=== PATIENT | female | born 1955 | race Caucasian/White ===

== ENCOUNTER → 2017-03-11 | Outpatient (CLI) | payer OTHER ==
[~2017-03-11] VITALS: Ht 167.6 cm; Wt 88.9 kg
[~2017-03-11] MED LIST: ATORVASTATIN CA40 MG PO; FENOGLIDE120 MG PO; GLUCOPHAGE500 MG PO; HYDROCODON-ACE1 EAC7 PO; HYDROCODONE-AP1 EAC6 PO; IBUPROFEN 600600 M1 PO; LEVOTHYROXIN0.112 M1 PO; LISINOPRIL-HCT1 EACH PO; LOPRESSOR25; MOBIC7.5 MG PO; NABUMETONE 500500 M2 PO; NAPROSYN500 MG PO; PAXIL 20 MG TAB20 MG PO
--- NOTE | ~2017-03-11 | HPC ---
[facility] [place] [address] PAIN MANAGEMENT CONSULTATION Name: GIRISH BORJA Room #: REG ROSETTE Stewart#: [id number] Admission: 03/11/17 Attend Phys: Ramu Adair DO Discharge: Date of : 55 Report #: [id number] THIS REPORT FOR: //name// CC: Crispin Adair HISTORY OF PRESENT ILLNESS: The patient followed with a delightful 61-year-old female. She was prior seen in the pain clinic a little greater than a year ago, 02/20/2016, for symptomatic lumbar radiculopathy. She was given an epidural injection at L4 with dramatic improvement of baseline pain, the patient returns to the pain clinic today noting pain has recurred, it is in the low back, right lateral leg to the foot. Again, 100% relief from similar symptoms a year ago for multiple months. The patient notes she is packing and moving her home, developed recurrence of pain with this increased activity. She has tried ibuprofen 600 mg q. 6 hours, continues to do physical therapy that she learned from prior prescription physical therapy courses, she is doing these exercises regularly at home and has taken some hydrocodone, all with dwindling efficacy. She notes pain is "10" on a 0-10 visual analog scale, exacerbated with standing, walking or lying on her side. Nothing seems to be affording much relief. Fortunately, she denies bowel or bladder continence changes or specific myelopathic symptoms, but again is getting significant radicular symptoms that are interfering with function. REVIEW OF SYSTEMS: Complete review of systems attached to chart, was gone over with the patient, again reasonably healthy 61-year-old female. Comorbidity includes some non-insulin dependent diabetes, well treated with Glucophage; dyslipidemia for which she takes Lipitor and fenofibrate; hypertension, treated with metoprolol and lisinopril; hypothyroidism for which she takes levothyroxine; some mild anxiety for which she takes Paxil. PHYSICAL EXAMINATION: Shows 167 cm, 88 kilograms female, BMI is 31.7 kilograms per meter squared. Blood pressure 129/81, pulse 71, respirations 16. Cervical range of motion is full. Upper extremity strength is preserved. Rises from chair using armrest. Nominally antalgic gait favoring the right leg. She does have trouble walking on the right heel. Lower extremity extension and dorsiflexion on the right is about 3/5, all other muscle groups including the left leg about 4-5/5 to the individual muscles tested. Grossly positive straight leg raise on the right at 30 degrees. DIAGNOSTIC STUDIES: Prior diagnostic study is modestly dated from August 2013. She did have right herniated disk at L4-L5 with facet changes throughout. ASSESSMENT: Symptomatic lumbar radiculopathy in a right L4 radicular pattern by clinical exam, similar symptoms well treated with epidural injection greater than a year ago, near 100% relief for 10 months. She has failed conservative therapy including range of motion, stretching and physical therapy-guided [address] [address] PAIN MANAGEMENT CONSULTATION Name: GIRISH BORJA Room #: NIYA Stewart#: [id number] Admission: 03/11/17 Attend Phys: Ramu Adair DO Discharge: Date of : 55 Report #: [id number] exercises, nonsteroidal anti-inflammatory medications, ice and heat. Physical exam shows concordant neural tensioning symptoms and concerning weakness in an L4 distribution. RECOMMENDATION: 1. Epidural injection under fluoroscopy. We will request authorization for earliest possible date. 2. We will renew hydrocodone , the patient has used this incredibly judiciously, prescription for 60 tablets lasted nearly a year. Continue ibuprofen 600 mg t.i.d. <ELECTRONICALLY SIGNED> By: Ramu Adair DO 03/11/17 1225 1111 1125 Ramu Adair DO /nt
[2017-03-11 10:00] VITALS: BP 129/81
== END | disposition home or self-care (01) ==
LOC: PAIN 06:58
DX: M54.16 Radiculopathy, lumbar region (principal); E11.9 Type 2 diabetes mellitus without complications; E78.5 Hyperlipidemia, unspecified; I10 Essential (primary) hypertension; E03.9 Hypothyroidism, unspecified; F41.9 Anxiety disorder, unspecified

== ENCOUNTER → 2017-03-14 | Outpatient (CLI) | payer OTHER ==
[~2017-03-14] VITALS: Ht 167.6 cm; Wt 88.5 kg
--- NOTE | ~2017-03-14 | HPC ---
[facility] [place] [address] [address] [place] [address] PAIN MANAGEMENT CONSULTATION Name: GIRISH BORJA Room #: REG [facility] Livan.#: [id number] Admission: 03/14/17 Attend Phys: Ramu Adair DO Discharge: Date of : 55 Report #: [id number] THIS REPORT FOR: //name// CC: Crispin Adair DATE OF SERVICE: 03/14/2017 The patient is a delightful 61-year-old female. She was seen a year ago and had 2 lumbar epidural injections for right lumbar radicular pain with dramatic improvement of pain. Pain began to recur. She was seen in followup on 03/11/2017. We sought authorization for repeat epidural injection under fluoroscopy today. She presents to the pain clinic for that injection. The patient notes pain is ongoing low back, right leg, L4 distribution. ASSESSMENT: Symptomatic lumbar radiculopathy. PROCEDURE: Lumbar epidural injection under fluoroscopy. PROCEDURE NOTE: After both written and informed consent to include risk of spinal cord damage, increased pain, weakness and dural puncture, the patient was taken to the fluoroscopy suite, placed in the prone position. After sterile prep and drape, a skin wheal with lidocaine was raised. A 22-gauge epidural Tuohy needle was inserted in the midline at L4-L5 with good loss to resistance. Negative aspiration for cerebrospinal fluid or blood was noted. Then 1 mL of Omnipaque under biplanar fluoroscopy showed good spread within the epidural space. This was followed with 80 mg of triamcinolone plus 1 mL of 1.5% preservative-free Xylocaine, 0.5 mL Xylocaine was then injected to flush the needle; it was removed. The patient was monitored for an appropriate period of time and discharged in good and stable condition. RECOMMENDATIONS: The patient was told to wean oxycodone prescribed at last visit as able. Follow up in 3 weeks if needed. If she has recurrent symptoms, we can consider repeating the injection or perhaps even moving forward with a right L4-L5 transforaminal epidural injection; however, if she is doing well, I will be happy to have her cancel that appointment. We will see her simply on an as needed basis. By: 0911 1232 Ramu Adair DO /nt
[2017-03-14 08:57] VITALS: BP 122/62
== END ==
LOC: PAIN 06:32
DX: M54.16 Radiculopathy, lumbar region (principal)

== ENCOUNTER → 2017-04-28 | Outpatient (CLI) | payer OTHER ==
[~2017-04-28] VITALS: Ht 167.6 cm; Wt 88.1 kg
[~2017-04-28] MED LIST changes: +NABUMETONE 750750 M1 PO
--- NOTE | ~2017-04-28 | HPC ---
[facility] [address] [address] PAIN MANAGEMENT CONSULTATION Name: GIRISH DUNN Room #: REG [facility].#: [id number] Admission: 04/28/17 Attend Phys: Ramu Adair DO Discharge: Date of : 55 Report #: [id number] THIS REPORT FOR: //name// CC: Crispin Adair The patient is a pleasant 61-year-old female last seen in the pain clinic 03/14/2017, given epidural injection at that time. She prior had a single injection in 2016 and 2 injections in 2015 for ongoing lumbar radicular pain. He returns to pain clinic today noting that that injection afforded incremental relief. Took the sharpness away from the leg, nearly 100% of some of the radicular component, but still has pain in the back and buttock. She incidentally notes significant pain in her hips bilaterally. PHYSICAL EXAMINATION: Shows a 61-year-old female, BMI is 31.4 kilograms per meter squared. Vital signs stable as noted in the EMR. Rises from chair using armrest, but still has a mildly antalgic gait. Passive rotation of the hip exacerbates pain. Flexion is good to 90 degrees. Lower extremity strength is symmetric. Positive straight leg raise on the right. Tender in the right L4 distribution with paresthesia in the lateral anterior thigh and lower leg. Again, passive rotation of the hips exacerbates some moderate amount of pain. I did take the liberty today of ordering x-rays of the hips. I personally reviewed the images. 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 Left hip appears fairly unremarkable. ASSESSMENT: Symptomatic lumbar radiculopathy with greater than 50% improvement following epidural injection #1. We will repeat injection at earliest possible day, we will seek authorization for same. The patient has a specific right L4 radicular pain pattern with a little bit of radiation to the left side. Again, she has failed conservative therapy including a nonsteroidal anti-inflammatory medication use, physical therapy including massages 2-3 times a week, hydrocodone use, although we discourage short acting opiates for chronic pain issues, she uses 2 a day with some efficacy. It seems to help. Then, again greater than 50% relief following the prior injection 03/14/2017. 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 Discharged in good stable condition after prolonged visit, she was seen for approximately 30 minutes, both before and after the x-rays. We did review imaging findings with the patient. We will plan on moving forward with epidural injection under fluoroscopy at next visit. <ELECTRONICALLY SIGNED> By: Ramu Adair DO 05/02/17 0746 1520 1623 Ramu Adair DO /nt
[2017-04-28 10:37] VITALS: BP 123/67
== END ==
LOC: PAIN 04-04 14:01
DX: M54.16 Radiculopathy, lumbar region (principal); Z79.899 Other long term (current) drug therapy; Z98.890 Other specified postprocedural states

== ENCOUNTER → 2017-05-09 | Outpatient (CLI) | payer OTHER ==
[~2017-05-09] VITALS: Ht 167.6 cm; Wt 90.7 kg
--- NOTE | ~2017-05-09 | HPC ---
[facility] [place] [address] [address] [place] [address] PAIN MANAGEMENT CONSULTATION Name: GIRISH DUNN [facility] [id number] Admission: 05/09/17 Attend Phys: Ramu Adair DO Discharge: Date of : 55 Report #: [id number] THIS REPORT FOR: //name// CC: Crispin Adair The patient is a pleasant 61-year-old female, she was seen 04/28/2017, diagnosed with symptomatic lumbar radiculopathy, we sought authorization for epidural injection under fluoroscopy, which was accomplished. She returns to pain clinic today for prior authorized injection. She notes current pain is 8 on a VAS. Unchanged from prior visit, pain is in the back, right L4 distribution. ASSESSMENT: Symptomatic lumbar radiculopathy. PROCEDURE: Lumbar epidural injection under fluoroscopy. PROCEDURE NOTE: After both written and informed consent to include risk of spinal cord damage, increased pain, weakness and dural puncture, the patient was taken to the fluoroscopy suite, placed in the prone position. After sterile prep and drape, a skin wheal with lidocaine was raised. A 22-gauge epidural Tuohy needle was inserted in the midline at L4-L5 with good loss to resistance. Negative aspiration for cerebrospinal fluid or blood was noted. Then 1 mL of Omnipaque under biplanar fluoroscopy showed good spread within the epidural space. This was followed with 80 mg of triamcinolone plus 1 mL of 1.5% preservative-free Xylocaine, 0.5 mL Xylocaine was then injected to flush the needle; it was removed. The patient was monitored for an appropriate period of time and discharged in good and stable condition. <ELECTRONICALLY SIGNED> By: Ramu Adair DO 05/20/17 0809 1534 [id number] Ramu Adair DO /nt
[2017-05-09 10:52] VITALS: BP 133/86
== END ==
LOC: PAIN 10:31
DX: M54.16 Radiculopathy, lumbar region (principal); I10 Essential (primary) hypertension; Z79.899 Other long term (current) drug therapy